=== PATIENT | male | born 2000 | race Hispanic/Latino ===

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

== ENCOUNTER 2024-09-20 22:51 | Observation (INO) | payer OTHER, SELFPAY ==
--- OUTSIDE RECORDS SUMMARY | 2024-09-20 22:54 | XMS REPORT | Continuity of Care Document ---
Author Name Unknown Address [address] [facility] [address] [place] [address] [facility] [place] Address [address] [facility] [address] [place] [address] Care Team Providers Care Licensed Plumber Name Role Phone Unavailable Unavailable Unavailable Problems Condition Name Condition Details Condition Category Status Onset Date Resolution Date Last Treatment Date Treating Clinician Comments Source Instabilit y of left shoulder joint Instabilit y of left shoulder joint Diagnosis Active [facility] Pain in joint of left shoulder Pain in joint of left shoulder Diagnosis Active [facility] Dislocatio n of left shoulder joint, initial encounter Dislocatio n of left shoulder joint, initial encounter Diagnosis Active [facility] Encounters Start Date/Time End Date/Time Encounter Type Admission Type Attending Clinicians Care Facility Care Department Encounter ID Source 2018-10-10 14:30:00 2018-10-10 14:30:00 [facility] [id number] [facility] 2018-09-23 10:30:00 2018-09-23 10:30:00 [facility] [id number] [facility] 2018-03-11 08:00:00 2018-03-11 08:00:00 [facility] [id number] [facility]
[2024-09-20] MEDS ORDERED: NA CHLORIDE 0.9% 1,000 ML ONE (23:12)
[2024-09-20] MEDS ORDERED: ONDANSETRON 4 MG/2 ML VIAL ONE (23:12)
[2024-09-20 23:23] LABS: Absolute Basophils 0.1 K/uL (0-0.5); Absolute Eosinophils 0.2 K/uL (0-0.5); Absolute Lymphocytes (CBC) 1.7 K/uL (0.7-4.9); Absolute Monocytes 0.4 K/uL (0.1-1.3); Absolute Neutrophil 4.5 K/uL (1.8-8.0); Basophils % 0.9 % (0-1.3); Hematocrit 40.6 % (39.6-49.0); Hemoglobin 13.9 g/dL (13.6-17.9); Lymphocytes % 24.8 % (15.3-44.8); MCH 30.8 pg (27.0-35.0); MCHC 34.2 g/dL (32.0-36.0); MPV 9.3 fL (7.6-11.3); Monocytes % 5.7 % (3.3-12.3); Neutrophils % 65.6 % (41.7-73.7); Nucleated Red Blood Cells % 0.1 % (0-0); Platelets 209 thou/uL (152-406); RBC Red Blood Cell Count 4.51 M/uL (4.33-5.43); Red Cell Distribution Width 13.4 % (12.1-15.2)
[2024-09-20 23:38] LABS: Albumin 3.7 g/dL (3.4-5.0); Albumin/Globulin Ratio 1.2 (1.1-1.8); Anion Gap 10.4 mEq/L (5.0-15.0); Bilirubin Total 0.5 mg/dL (0.2-1.0); Globulin 3.1 g/dL (2.3-3.5); Potassium 3.4 mEq/L (3.5-5.1); Protein, Total 6.8 g/dL (6.4-8.2)
--- NOTE | 2024-09-20 23:57 | RAD REPORT ---
EXAM DESCRIPTION: XR CHEST 1 VIEW CLINICAL HISTORY: 24 years Male Possible aspiration, cough. COMPARISON: None. TECHNIQUE: 1 view study of the Chest was performed. FINDINGS: Cardiac size is within normal limits. Central vessels are not increased. No effusions bilaterally. Diffuse interstitial opacities in the lungs bilaterally. No consolidation. No pneumothorax. IMPRESSION: Diffuse bilateral interstitial infiltrates versus chronic change. Electronically signed by: Maria D Baig MD 09/20/2024 11:48 PM CDT RP Due to temporary technical issues with the PACS/[employer] reporting system, reports are being evangelista d by the in-house radiologist without review as a courtesy to ensure prompt reporting the interpreting radiologist is fully responsible for the content of the report. Transcribed Date/Time: 09/20/2024 11:56 PM
[2024-09-21] MEDS ORDERED: NA CHLORIDE 0.9% 1,000 ML ONE ×2 (00:05→00:09)
[2024-09-21] MEDS ORDERED: CEFTRIAXONE 1000 MG/VIAL ONE (00:05)
[2024-09-21] MEDS ORDERED: AMPICILLIN/SULBACTAM 3GM/VIAL ONE (00:08)
[2024-09-21] MEDS ORDERED: NA CHLORIDE 0.9% 100 ML ONE (00:09)
--- NOTE | 2024-09-21 01:03 | EDPHYS ---
Physician Documentation [facility] Name: Elder Farooq Age: 24 yrs Sex: Male : 2000 Arrival Date: 09/20/2024 Time: 22:51 Bed 14 Private MD: ED Physician Lyndsay Mcdaniel HPI: 09/21 01:38 This 24 yrs old Male presents to ER via EMS with complaints of Overdose. dr5 01:38 Patient is a 24-year-old male with history of drug abuse coming in with cocaine use dr5 which led to syncope and being unresponsive. EMS gave 4 mg of IN Narcan as well as 2 mg IV of Narcan with mild responsiveness. Patient states he does not know who the cocaine came from as he does not know the dealer. . Historical: - Allergies: 09/20 23:03 No Known Allergies; lg3 - Home Meds: 23:03 None [Active]; lg3 - PMHx: 23:03 Drug abuse; Drug dependence; lg3 - PSHx: 23:03 None; lg3 - Immunization history:: Adult Immunizations up to date. - Infectious Disease History:: Denies. - Social history:: Smoking status: Reported history of juuling and/or vaping. Patient uses street drugs, cocaine. ROS: 09/21 01:38 Constitutional: as per hpi dr5 Exam: 01:38 Constitutional: This is a well developed, well nourished patient who is awake, alert, dr5 and in no acute distress. Head/Face: Normocephalic, atraumatic. Eyes: Pupils equal round and reactive to light, extra-ocular motions intact. Lids and lashes normal. Conjunctiva and sclera are non-icteric and not injected. Cornea within normal limits. Periorbital areas with no swelling, redness, or edema. Neck: Trachea midline, no thyromegaly or masses palpated, and no cervical lymphadenopathy. Supple, full range of motion without nuchal rigidity, or vertebral point tenderness. No Meningismus. Chest/axilla: Normal chest wall appearance and motion. Nontender with no deformity. No lesions are appreciated. Cardiovascular: Regular rate and rhythm with a normal S1 and S2. Normal PMI, no JVD. No pulse deficits. 01:38 Neuro: Awake and alert, GCS 15, oriented to person, place, time, and situation. Cranial nerves II-XII grossly intact. Motor strength 5/5 in all extremities. Sensory grossly intact. Cerebellar exam normal. Normal gait. 01:38 Respiratory: mild respiratory distress is noted, Respirations: normal, Breath sounds: rhonchi, that are moderate, are heard in the left posterior lower lobe and right posterior lower lobe, Vital Signs: 09/20 23:00 BP 136 / 86; Pulse 111; Resp 22 S; Temp 98.2(TE); Pulse Ox 85% on R/A; Weight 81.65 kg lg3 (R); Height 5 ft. 8 in. (R); Pain 0/10; 23:08 BP 129 / 80; Pulse 103; Resp 28; Pulse Ox 100% on Non-rebreather mask; lg3 23:32 BP 125 / 77; Pulse 101; Resp 23 S; Pulse Ox 98% on 2 lpm NC; lg3 09/21 00:10 Pulse Ox 90% on 2 lpm NC; lg3 00:11 Pulse Ox 97% on 4 lpm NC; lg3 01:25 BP 123 / 84; Pulse 98; Resp 20 S; Pulse Ox 98% on 4 lpm NC; lg3 09/20 23:00 Body Mass Index 27.37 (81.65 kg, 172.72 cm) lg3 09/20 23:00 Pain Scale: Adult lg3 MDM: 09/20 23:02 Medical Screening Exam initiated dr5 09/21 01:38 Differential diagnosis: polypharmacy, Aspiration PNA, Electrolyte Abnormality, JONN. dr5 Data reviewed: vital signs, nurses notes. Consideration of Admission/Observation Patient was admitted/placed on observation. I considered the following discharge prescriptions or medication management in the emergency department Medications were administered in the Emergency Department. See MAR. Care significantly affected by the following Social Determinants of Health: Poor access to healthcare and/or lack of insurance, Poor access to transportation, Misuse of alcohol and/or drugs, Problems related to employment. Counseling: I had a detailed discussion with the patient and/or guardian regarding the historical points, exam findings, and any diagnostic results supporting the discharge/admit diagnosis, the presence of at least one elevated blood pressure reading (>120/80) during this emergency department visit, the need for further work-up and treatment in the hospital. ED course: Patient found to have aspiration pneumonia development. Blood cultures drawn with first dose of antibiotics given. Patient remains on nasal cannula approximately 2 to 4 L nasal cannula with oxygen sats 95%. Patient saturations decreased when oxygen on. Will admit. 09/20 23:01 Order name: CBC with Diff; Complete Time: 23:25 dr5 09/20 23:01 Order name: CMP; Complete Time: 23:50 dr5 09/20 23:01 Order name: Lipase; Complete Time: 23:50 dr5 09/20 23:01 Order name: UDS; Complete Time: 02:00 dr5 09/21 00:08 Order name: Blood Culture Adult (2) dr5 09/21 00:08 Order name: Lactate w/ 2H reflex if indic.; Complete Time: 01:02 dr5 09/21 01:24 Order name: Comprehensive Metabolic Panel [facility] 09/21 01:24 Order name: CBC with Automated Diff [facility] 09/21 01:24 Order name: CBC with Automated Diff [facility] 09/21 01:24 Order name: Lipid Profile [facility] 09/21 01:24 Order name: Lipid Profile [facility] 09/21 01:27 Order name: Procalcitonin [facility] 09/20 23:02 Order name: Chest Single View XRAY dr5 09/20 23:01 Order name: EKG; Complete Time: 23:02 dr5 09/21 01:24 Order name: CONS Physician Consult [facility] 09/20 23:01 Order name: IV Saline Lock; Complete Time: 23:05 dr5 09/20 23:01 Order name: Labs collected and sent; Complete Time: 23:05 dr5 EC/12 22:50 Rate is 111 beats/min. Rhythm is regular. QRS [place] is Normal. [place] interval is normal at dr5 140 msec. QRS interval is normal at 90 msec. QT interval is normal at 322 msec. Administered Medications: 23:30 Drug: NS 0.9% IV 1000 ml IV at 1 bolus Per protocol; to be given as a bolus over 60 lg3 minutes Route: IV; Rate: 1 bolus; Site: left antecubital; 09/21 00:10 Follow up: Response: No adverse reaction; IV Status: Completed infusion; IV Intake: lg3 1000ml 09/20 23:31 Drug: Ondansetron IVP 4 mg IVP once; over 2 minutes Route: IVP; Site: left antecubital; lg3 09/21 00:10 Follow up: Response: No adverse reaction lg3 00:41 Drug: Ampicillin-Sulbactam Sodium IVPB 3 grams IVPB once over 30 mins; (mix in 100 mL lg3 NS) Route: IVPB; Infused Over: 30 mins; Site: left antecubital; Follow up: Response: No adverse reaction; IV Status: Completed infusion; IV Intake: lg3 100ml 00:41 Drug: NS 0.9% IV 1000 ml IV at 1000 ml once; to be given as a bolus over 60 minutes lg3 Route: IV; Rate: 1000 ml; Site: left antecubital; Follow up: Response: No adverse reaction; IV Status: Completed infusion; IV Intake: lg3 1000ml Disposition Summary: 09/21/24 01:03 Hospitalization Ordered Notes: Hospitalization Status: Inpatient Admission dr5 Provider: Radha Corley Location: Telemetry/MedSurg (observation) dr5 Condition: Stable dr5 Problem: new dr5 Symptoms: are unchanged dr5 Bed/Room Type: Standard [facility] Room Assignment: [facility] [place](09/21/24 01:22) [facility] Diagnosis - Unspecified bacterial pneumonia dr5 Forms: - Medication Reconciliation Form dr5 - SBAR form dr5 - Leadership Thank You Letter dr5 Signatures: Dispatcher [employer] Radha Rene RN RN Tamra Sam [facility] Victor Hugo Herrera FNP-C FNP-Cdr5 Corrections: (The following items were deleted from the chart) 01:03 dr5 demond
--- NOTE | 2024-09-21 01:03 | ER ---
Nurse's Notes [facility] Name: Elder Farooq Age: 24 yrs Sex: Male : 2000 Arrival Date: 09/20/2024 Time: 22:51 Bed 14 Private MD: Diagnosis: Unspecified bacterial pneumonia Presentation: 09/20 23:00 Chief complaint: EMS states: found unresponsive after snorting cocaine. 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 PT AAOx4 on arrival to ED. Coronavirus screen: Client denies travel out of the [place] in the last 14 days. At this time, the client does not indicate any symptoms associated with coronavirus-19. Ebola Screen: No symptoms or risks identified at this time. Initial Sepsis Screen: Does the patient meet any 2 criteria? No. Patient's initial sepsis screen is negative. Does the patient have a suspected source of infection? No. Patient's initial sepsis screen is negative. Risk Assessment: Do you want to hurt yourself or someone else? Patient reports no desire to harm self or others. Onset of symptoms was September 20, 2024. 23:00 Method Of Arrival: EMS: [facility] lg3 23:00 Acuity: [facility] 2 lg3 Triage Assessment: 23:03 General: Appears in no apparent distress. Behavior is calm, cooperative. Pain: lg3 Complains of pain in chest. EENT: No deficits noted. No signs and/or symptoms were reported regarding the EENT system. Neuro: No deficits noted. Mares Agitation-Sedation Scale (RASS): 0 - Alert and Calm Level of Consciousness is awake, alert, obeys commands, Oriented to person, place, time, situation. Cardiovascular: No deficits noted. Heart tones S1 S2 present Capillary refill < 3 seconds Clubbing of nail beds is absent JVD is absent Patient's skin is warm and dry. Respiratory: Reports cough that is pain with cough Airway is patent Respiratory effort is even, unlabored, Respiratory pattern is regular, symmetrical, Breath sounds are clear bilaterally. GI: No deficits noted. No signs and/or symptoms were reported involving the gastrointestinal system. Abdomen is round non-distended, Bowel sounds present X 4 quads. : No signs and/or symptoms were reported regarding the genitourinary system. Derm: No deficits noted. No signs and/or symptoms reported regarding the dermatologic system. Skin is intact, is healthy with good turgor, Skin is dry, Skin is normal, Skin temperature is warm. Musculoskeletal: No deficits noted. No signs and/or symptoms reported regarding the musculoskeletal system. Circulation, motion, and sensation intact. Range of motion: intact in all extremities. Historical: - Allergies: 23:03 No Known Allergies; lg3 - Home Meds: 23:03 None [Active]; lg3 - PMHx: 23:03 Drug abuse; Drug dependence; lg3 - PSHx: 23:03 None; lg3 - Immunization history:: Adult Immunizations up to date. - Infectious Disease History:: Denies. - Social history:: Smoking status: Reported history of juuling and/or vaping. Patient uses street drugs, cocaine. Screenin:06 [facility] ED Fall Risk Assessment (Adult) History of falling in the last 3 months, lg3 including since admission No falls in past 3 months (0 pts) Confusion or Disorientation No (0 pts) Intoxicated or Sedated No (0 pts) Impaired Gait No (0 pts) Mobility Assist Device Used No (0 pt) Altered Elimination No (0 pt) Score/Fall Risk Level 0 - 2 = Low Risk Oriented to surroundings, Maintained a safe environment, Educated pt \\T\\ family on fall prevention, incl call for assistance when getting out of bed, Assessed \\T\\ reinforced patient's understanding of fall precautions. Abuse screen: Denies threats or abuse. Denies injuries from another. Nutritional screening: No deficits noted. Tuberculosis screening: No symptoms or risk factors identified. Assessment: 23:06 General: see triage assessment. lg3 23:32 Reassessment: Patient appears in no apparent distress at this time. No changes from lg3 previously documented assessment. Patient and/or family updated on plan of care and expected duration. Pain level reassessed. Patient is alert, oriented x 3, equal unlabored respirations, skin warm/dry/pink. Patient states feeling better. Patient states symptoms have improved. 09/21 01:25 Reassessment: Patient appears in no apparent distress at this time. Patient and/or lg3 family updated on plan of care and expected duration. Pain level reassessed. Patient is alert, oriented x 3, equal unlabored respirations, skin warm/dry/pink. Patient states feeling better. Patient states symptoms have improved. 02:18 Reassessment: Patient appears in no apparent distress at this time. Patient and/or lg3 family updated on plan of care and expected duration. Pain level reassessed. Patient is alert, oriented x 3, equal unlabored respirations, skin warm/dry/pink. Patient states feeling better. Patient states symptoms have improved. Overdose: 02:18 [place] Suicide Severity Screening: "In the past month, have you wished you were lg3 or wished you could go to sleep and not wake up?" Patient responds "no." "In the past month, have you actually had any thoughts of killing yourself?" Patient responds "no." "In your lifetime, have you ever done anything, started to do anything, or prepared to do anything to end your life?" Patient responds "no.". Vital Signs: 09/20 23:00 BP 136 / 86; Pulse 111; Resp 22 S; Temp 98.2(TE); Pulse Ox 85% on R/A; Weight 81.65 kg lg3 (R); Height 5 ft. 8 in. (R); Pain 0/10; 23:08 BP 129 / 80; Pulse 103; Resp 28; Pulse Ox 100% on Non-rebreather mask; lg3 23:32 BP 125 / 77; Pulse 101; Resp 23 S; Pulse Ox 98% on 2 lpm NC; lg3 0413 00:10 Pulse Ox 90% on 2 lpm NC; lg3 00:11 Pulse Ox 97% on 4 lpm NC; lg3 01:25 BP 123 / 84; Pulse 98; Resp 20 S; Pulse Ox 98% on 4 lpm NC; lg3 09/20 23:00 Body Mass Index 27.37 (81.65 kg, 172.72 cm) lg3 09/20 23:00 Pain Scale: Adult lg3 ED Course: 09/20 23:00 Patient arrived in ED. lg3 23:00 Victor Hugo Herrera FNP-C is [facility]. dr5 23:00 Lyndsay Mcdaniel MD is Attending Physician. dr5 23:03 Triage completed. lg3 23:03 Arm band placed on right wrist. EKG completed in triage. Results shown to MD. lg3 23:06 Patient has correct armband on for positive identification. Placed in gown. Bed in low lg3 position. Call light in reach. Side rails up X2. Client placed on continuous cardiac and pulse oximetry monitoring. NIBP monitoring applied. monitoring engineer on. Door closed. Noise minimized. Warm blanket given. Pillow given. 23:06 Maintain EMS IV. Dressing intact. Good blood return noted. Site clean \\T\\ dry. Gauge \\T\\ lg 3 site: 18LAC. Flushed with 10 mL NS. Oxygen administration via non-rebreather mask \\T\\ 15L/min Response to oxygen therapy: symptoms improved. 23:07 CBC with Diff Sent. hw 23:07 CMP Sent. hw 23:07 Lipase Sent. hw 23:23 Chest Single View XRAY In Process Unspecified. EDMS 23:30 Radha Poole, RN is Primary Nurse. lg3 09/21 00:21 First set of blood cultures drawn by me. vk 00:26 Blood Culture Adult (2) Sent. vk 00:26 Lactate w/ 2H reflex if indic. Sent. vk 00:31 Second set of blood cultures drawn by me. vk 01:02 Radha Corley MD is Hospitalizing Provider. dr5 01:25 No provider procedures requiring assistance completed. Patient admitted, IV remains in lg3 place. Administered Medications: 09/20 23:30 Drug: NS 0.9% IV 1000 ml IV at 1 bolus Per protocol; to be given as a bolus over 60 lg3 minutes Route: IV; Rate: 1 bolus; Site: left antecubital; 09/21 00:10 Follow up: Response: No adverse reaction; IV Status: Completed infusion; IV Intake: lg3 1000ml 09/20 23:31 Drug: Ondansetron IVP 4 mg IVP once; over 2 minutes Route: IVP; Site: left antecubital; lg3 09/21 00:10 Follow up: Response: No adverse reaction lg3 00:41 Drug: Ampicillin-Sulbactam Sodium IVPB 3 grams IVPB once over 30 mins; (mix in 100 mL lg3 NS) Route: IVPB; Infused Over: 30 mins; Site: left antecubital; 01:26 Follow up: Response: No adverse reaction; IV Status: Completed infusion; IV Intake: lg3 100ml 00:41 Drug: NS 0.9% IV 1000 ml IV at 1000 ml once; to be given as a bolus over 60 minutes lg3 Route: IV; Rate: 1000 ml; Site: left antecubital; :26 Follow up: Response: No adverse reaction; IV Status: Completed infusion; IV Intake: lg3 1000ml Medication: 09/20 23:06 VIS not applicable for this client. lg3 Intake: 09/21 00:10 IV: 1000ml; Total: 1000ml. lg3 01:26 IV: 1000ml; Total: 2000ml. lg3 01:26 IV: 100ml; Total: 2100ml. lg3 Outcome: 01:03 Decision to Hospitalize by Provider. dr5 02:18 Admitted to Med/surg accompanied by tech, via wheelchair, with oxygen, lg3 02:18 Condition: stable 02:18 Discharge instructions given to patient, Instructed on the need for admit, Demonstrated understanding of instructions, 02:19 Patient left the ED. lg3 Signatures: Dispatcher [employer] EDRadha Allison RN RN lg3 Sophia Guzmán Hailey hw Rhodes, Victor Hugo, LICENSED AIRCRAFT MAINTENANCE ENGINEER-C LICENSED AIRCRAFT MAINTENANCE ENGINEER-Cdr5 Corrections: (The following items were deleted from the chart) 09/20 23:09 23:00 BP 136 / 86; Pulse 111bpm; Resp 19bpm; Spontaneous; Pulse Ox 85% RA; Temp 98.2F lg3 Temporal; 81.65 kg Reported; Height 5 ft. 8 in. Reported; BMI: 27.3; Pain 0/10, Adult; lg3
--- NOTE | 2024-09-21 01:07 | P.HP ---
Patient History Date of Service: 09/21/24 Reason for admission: Fentanyl overdose History of Present Illness: Is a 24-year-old male with minimal past medical history presenting after a fentanyl overdose. He is seen resting in his room awake and alert. He states he overdosed on fentanyl and his brother attempted CPR after he would not wake up. He stated he was given about 6 mg of Narcan. He denies cocaine use. He denies chills, chest pain, fevers. Allergies No Known Allergies Allergy (Verified 09/21/24 01:44) Review of Systems 10-point ROS is otherwise unremarkable General: As per HPI Eyes: Unremarkable ENT: Unremarkable Respiratory: Unremarkable Cardiovascular: Unremarkable Gastrointestinal: Unremarkable Genitourinary: Unremarkable Musculoskeletal: Unremarkable Integumentary: Unremarkable Neurological: Unremarkable Lymphatics: Unremarkable Physical Examination - Physical Exam General: Alert, In no apparent distress HEENT: Normocephalic Neck: Supple Respiratory: Clear to auscultation bilaterally Cardiovascular: No edema Capillary refill: <2 Seconds Gastrointestinal: Normal bowel sounds Musculoskeletal: No clubbing Integumentary: No rashes Neurological: Normal gait Lymphatics: No axilla or inguinal lymphadenopathy - Studies Laboratory Data (last 24 hrs) 09/20/24 09/20/24 23:04 23:04 WBC 6.90 Hgb 13.9 Hct 40.6 Plt Count 209 Sodium 139 Potassium 3.4 L BUN 8 Creatinine 1.01 Glucose 159 H Total Bilirubin 0.5 AST 29 ALT 26 Alkaline Phosphatase 60 Lipase 14 Assessment and Plan - Plan Fentanyl overdose Multifocal pneumonia Hypoxia hypokalemia admit to floor continue IV Unasyn, blood cultures pending, obtain procalcitonin prn benzos for agitation replace potassium check mag level DVT prophylaxis with SCDs - Advance Directives Does patient have a Living Will: No Does patient have a Durable POA for Healthcare: No
[2024-09-21] MEDS ORDERED: FLUMAZENIL 0.1 MG/ML (5 mL VIAL) IV PRN (01:12)
[2024-09-21] MEDS ORDERED: ALBUTEROL 2.5 MG/3 ML NEB SOL NEB PRN (01:12)
[2024-09-21] MEDS ORDERED: ONDANSETRON 4 MG/2 ML VIAL IV PRN (01:12)
[2024-09-21] MEDS ORDERED: ACETAMINOPHEN 500 MG TAB PO PRN (01:12)
[2024-09-21] MEDS ORDERED: LORazepam 2 MG/ML VIAL IV PRN (01:24)
[2024-09-21 01:56] LABS: Barbiturates NEGATIVE (NEGATIVE); Benzodiazepines NEGATIVE (NEGATIVE); Cocaine NEGATIVE (NEGATIVE); METHAMPHETAM NEGATIVE (NEGATIVE); Methadone NEGATIVE (NEGATIVE); Opiates NEGATIVE (NEGATIVE); Phencyclidine NEGATIVE (NEGATIVE); THC Cannibis NEGATIVE (NEGATIVE)
[2024-09-21 02:05] VITALS: BMI 27.3
[2024-09-21] MEDS: AMPICILLIN/SULBACT 1.5 GM in NA CHLORIDE 0.9% 100 ML IVPB SCH (05:06)
[2024-09-21 05:27] LABS: Albumin 3.4 g/dL (3.4-5.0); Albumin/Globulin Ratio 1.1 (1.1-1.8); Bilirubin Total 0.6 mg/dL (0.2-1.0); C-Reactive Protein 5.85 mg/L (<3.00); Protein, Total 6.4 g/dL (6.4-8.2)
[2024-09-21 10:08] VITALS: O2SAT 91
--- NOTE | 2024-09-21 11:19 | P.DS ---
Admission Date: 09/21/24 Discharge Date: 09/21/24 Disposition: ROUTINE DISCHARGE Discharge Condition: GOOD Reason for Admission: Percocet overdose Brief History of Present Illness: Patient is 24 years of age admitted with unresponsiveness presumed excessive use of illegal drugs Hospital Course: Patient is 24 years of age according to the patient he was found unresponsive CPR was started by his brother Marv was given his urine tox screen was negative apparently he was using some flattened Percocet pills from [place] may have taken too much he denies any suicidal ideation there is no intention of harming himself at the time of discharge he was mildly hypoxic complaining of chest discomfort from CPR sats were greater than 90% ambulating denies any shortness of breath no fever chills no clinical evidence of pneumonia stable for discharge Vital Signs/Physical Exam: Temp Pulse Resp BP Pulse Ox 98.6 F 87 16 103/55 L 91 09/21/24 08:00 09/21/24 08:00 09/21/24 08:00 09/21/24 08:00 09/21/24 08:00 Laboratory Data at Discharge: WBC 6.90 thou/uL (4.3-10.9) 09/20/24 23:04 Hgb 13.9 g/dL (13.6-17.9) 09/20/24 23:04 Hct 40.6 % (39.6-49.0) 09/20/24 23:04 Plt Count 209 thou/uL (152-406) 09/20/24 23:04 Sodium 140 mEq/L (136-145) 09/21/24 05:00 Potassium 4.0 mEq/L (3.5-5.1) D 09/21/24 05:00 BUN 7 mg/dL (7-18) 09/21/24 05:00 Creatinine 0.75 mg/dL (0.70-1.30) 09/21/24 05:00 Glucose 103 mg/dL (74-106) 09/21/24 05:00 Total Bilirubin 0.6 mg/dL (0.2-1.0) 09/21/24 05:00 AST 25 U/L (15-37) 09/21/24 05:00 ALT 24 U/L (16-61) 09/21/24 05:00 Alkaline Phosphatase 53 U/L (45-117) 09/21/24 05:00 Lipase 14 U/L (13-75) 09/20/24 23:04 Home Medications: NK [No Home Meds] 09/21/24 Followup: NONE,NONE [Primary Care Provider] -
[2024-09-21 12:22] VITALS: BP 122/66; TEMP 98.2
--- NOTE | 2024-09-21 12:27 | RAD REPORT ---
EXAMINATION: TWO VIEW CHEST XR CLINICAL INDICATION: Male, 24 years old. [facility] Pneumonia TECHNIQUE: 2 view radiographs of the chest were performed. COMPARISON: 09/20/2024 FINDINGS: The lungs are well inflated and clear. No pneumothorax or sizable effusion. The heart is normal in si ze. Mediastinal contours are unremarkable. IMPRESSION: No acute or significant abnormalities.
--- NOTE | 2024-09-22 10:51 | EKG ---
Test Date: 2024-09-20 Test Time: 22:50:23 Electric Solderer: AF MEASUREMENT RESULTS: Intervals: Rate: 111 NM: 140 QRSD: 90 QT: 322 QTc: 437 [place]: P: 65 NM: 140 QRS: 82 T: 13 INTERPRETIVE STATEMENTS: Sinus tachycardia Nonspecific T wave abnormality Abnormal ECG No previous ECG available for comparison Electronically Signed On 09-22-24 10:48:11 CDT by Too Lopez
== END 2024-09-21 13:10 | disposition home or self-care (01) ==
LOC: ER 22:51 → INTOOBSV 09-21 01:12 → 2ND 09-21 01:12
PROVIDERS: ADMIT Family Medicine; ATTEND Internal Medicine Sleep Medicine
DX: T40.2X1A Poisoning by other opioids, accidental (unintentional), initial encounter (principal); Y92.9 Unspecified place or not applicable; F17.290 Nicotine dependence, other tobacco product, uncomplicated; R55 Syncope and collapse; R06.02 Shortness of breath
CPT/HCPCS: 96365; 96361; 93005; 87040 ×2; 85025; 36415; 83605; 83690; 80053 ×2; 84145; 80307; 86140; 71045; 71046; 94760 ×2; 96375; 99285; J0295 ×2; J2405; J7030 ×3; G0378 ×2; J0696